=== PATIENT | male | born 1925 | race Caucasian/White ===

== ENCOUNTER 2016-09-23 12:34 | Inpatient (IN) | payer MEDICARE, BC ==
--- NOTE | ~2016-09-23 | CO ---
Unit #: [id number] #: [id number] Patient: EULALIA ARIAS SR [id number] [address] [place], [place] [address] [id number] I MR#: [id number] NAME: EULALIA ARIAS SR ROOM: 313 Age: 89 Sex: M Admission Date: 09/23/2016 : 1925 Attending Physician: Di Rayo M.D. Primary Care Physician: Eulalia Becerra II., M.D. CONSULTATION REPORT REASON FOR CONSULTATION Congestive heart failure. HISTORY OF PRESENT ILLNESS This is an 89-year-old white male, who is followed by Dr. Shirley. He has a history of coronary artery disease where he underwent coronary artery bypass graft in 2001. He is known to have chronic systolic heart failure, hypertension, hyperlipidemia, and sick sinus syndrome with permanent pacemaker. The patient is admitted with a complaint of shortness of breath, cough, and weakness. He reports approximate 30-pound weight loss over a short period of time. He noted black stools and some difficulty with swallowing. No abdominal discomfort. His shortness of breath mostly occurs on exertion. Denies paroxysmal nocturnal dyspnea or orthopnea. No chest pain. No fever or chills. He went to his primary care physician's office where he was found to be anemic with hemoglobin of 6.8, and was sent to the emergency room for evaluation where he received a unit of packed red blood cells. His hemoglobin has improved to 9.7. He was also noted to have elevated troponin that is peaked to 0.34. He was treated in the emergency room with IV furosemide because of elevated BNP of 1472. Chest x-ray showed no significant heart failure. PAST MEDICAL HISTORY 1. A 2D echocardiogram on 02/21/2015 showed an ejection fraction of 15% to 20% with mild mitral stenosis, moderate mitral regurgitation, moderate tricuspid regurgitation, and moderate aortic stenosis with a severity could be underestimated secondary to the severe left ventricular systolic dysfunction. Right ventricular systolic pressure greater than 60 mmHg. 2. Coronary artery bypass graft in 2001, no details available. 3. Sick sinus syndrome status post permanent pacemaker. 4. Chronic systolic heart failure. 5. Hypertension. 6. Hyperlipidemia. 7. Diabetes mellitus, type 2. 8. Parkinson disease. 9. Chronic kidney disease, stage 4. 10. Former smoker. PAST SURGICAL HISTORY 1. Right hip replacement. 2. Cataract extraction. 3. Hemorrhoidectomy. Unit #: [id number] #: [id number] Patient: EULALIA ARIAS SR 4. Coronary artery bypass graft. 5. Permanent pacemaker. SOCIAL HISTORY The patient lives with his grandson, who assists him with his care. He ambulates with a walker. Quit smoking over 30 years ago. Denies illicit drug and alcohol use. FAMILY HISTORY Noncontributory given his advanced age. ALLERGIES Nifedipine. HOME MEDICATIONS 1. Allopurinol 100 mg daily. 2. Symbicort 160/4.5 mcg two puffs b.i.d. 3. Calcitriol 0.25 mcg daily. 4. Calcium carbonate 1500 mg t.i.d. 5. Carvedilol 12.5 mg b.i.d. 6. Ferrous sulfate 325 mg b.i.d. 7. Furosemide 40 mg daily. 8. Glucosamine/chondroitin 1 tablet daily. 9. NovoLog 70/30 per sliding scale. 10. Multivitamin 1 tablet daily. 11. Simvastatin 80 mg nightly. 12. Terazosin 2 mg nightly. 13. Ambien 12.5 mg nightly. REVIEW OF SYSTEMS CONSTITUTIONAL: Negative for fever or chills. Has a 30-pound weight loss that is recent. No weight gain. Positive for weakness. HEENT: No headache. No vision changes, but reports difficulty with swallowing. Has occasional dizziness. CARDIOVASCULAR: Has no symptoms of angina. Denies palpitations. No paroxysmal nocturnal dyspnea or orthopnea. No syncope or near syncope. RESPIRATORY: Reports dyspnea on exertion. No cough or hemoptysis. GASTROINTESTINAL: Denies abdominal pain, but reports melenic stools. No nausea or vomiting. EXTREMITIES: Negative for lower extremity edema. PHYSICAL EXAMINATION VITAL SIGNS: Blood pressure 131/74, heart rate 59, temperature 97.8, and BMI 17. GENERAL: This is a thin frail 89-year-old elderly white male, who is in no acute respiratory distress. NEUROLOGIC: He is awake, alert, oriented. There are no focal weaknesses,. NECK: Trachea is midline. No thyromegaly or lymphadenopathy. No jugular venous distention. HEART: S1 and S2. Heart sounds are normal with a grade 2/6 systolic murmur heard best at the apex and the left sternal border that radiates to the carotid and the axilla. No rubs or clicks. Regular rate and rhythm. LUNGS: Diminished breath sounds without rales, rhonchi, or wheezes. ABDOMEN: Soft and nontender with bowel sounds present. EXTREMITIES: Without leg edema. SKIN: Warm and dry. Unit #: [id number] #: [id number] Patient: EULALIA ARIAS SR DIAGNOSIS STUDIES LABORATORY STUDIES: Hemoglobin 9.7, hematocrit 29.4, platelet count 227, and white count 5.5. Sodium 136, potassium 4.7, BUN 67, creatinine 2.3, and glucose 166. Troponin less than 0.05 to 0.22 to 0.34. BNP 1472. IMAGING STUDIES: Chest x-ray shows questionable pneumonia. CARDIOVASCULAR STUDIES: EKG shows ventricular paced rhythm with a rate of 79 beats per minute. IMPRESSION 1. Symptomatic anemia. 2. Severe anemia, questionable gastrointestinal blood loss. 3. Weight loss, questionable etiology. 4. Dysphagia. 5. Chronic systolic heart failure with reduced ejection fraction of 15% to 20%. 6. History of coronary artery bypass graft in 2001. 7. Valvular heart disease with moderate mitral regurgitation, moderate aortic stenosis, and moderate tricuspid regurgitation. 8. Pulmonary hypertension. 9. Permanent pacemaker. 10. Chronic kidney disease, stage 4. PLAN 1. Cardiology was consulted for evaluation of congestive heart failure. The patient received IV Lasix in the emergency room and clinically is euvolemic on examination. We will change Lasix to oral. 2. Continue beta-leticia and statin. 3. No CARLOS ALBERTO inhibitor or ARBs secondary to chronic kidney disease, stage 4. 4. Trend troponin. 5. Troponin elevation may be secondary to anemia. 6. We will check echocardiogram to re-evaluate for valvular heart disease. 7. No further cardiac workup is planned at this time. Thank you for allowing us to assist in this patient's care. Dictated by... Flash Vazquez.P.R.N. for Carlton Juarez/evelin TD: 09/26/2016 02:20 JOB #: [id number] CC: Dev Springer M.D. CONSULTATION REPORT Page 1 of 1 X Dano Condon APRN CONSULTATION REPORT
--- NOTE | ~2016-09-23 | DS ---
Unit #: [id number] #: [id number] Patient: EULALIA ARIAS SR [id number] [address] [place], [place] [address] [id number] I MR#: [id number] NAME: EULALIA ARIAS SR ROOM: 313 Age: 89 Sex: M Admission Date: 09/23/2016 : 1925 Discharge Date: 09/25/2016 Attending Physician: Di Rayo M.D. Primary Care Physician: Eulalia Becerra II., M.D. DISCHARGE SUMMARY REASON FOR ADMISSION Weakness and low hemoglobin. HISTORY OF PRESENT ILLNESS/HOSPITAL COURSE The patient is an 89-year-old male with underlying history of heart failure, valvular heart disease, chronic kidney disease, hypertension, hyperlipidemia, diabetes, parkinsonism, sick sinus syndrome, who presented secondary to profound weakness. While he was evaluated at his primary care physician's office, he was noted to have a hemoglobin of 6.8. During hospital admission, he was typed and crossed and transfused 2 units. Consultation was placed with [facility] for evaluation. Family after discussion with them stated they did not wish for endoscopic evaluation. Therefore, the patient was appropriately monitor and at one point time, his hemoglobin did peak at 10.4, anticoagulation was placed on hold while he was here today and after several serial H and H, his hemoglobin has remained stable. At time of discharge, it is currently 8.6. The patient is otherwise asymptomatic. He feels well secondary to advanced age and associated comorbid conditions. The patient seems stable on conservative medical management in regard to his cardiac conditions. He did undergo 2D echocardiogram at this hospital stay which did show an ejection fraction of 25% to 30%, severe global hypokinesis of the left ventricle, the aortic valve did show severe aortic stenosis, moderate mitral regurgitation was also noted as well as moderate tricuspid regurgitation. From a cardiac standpoint, the patient is stable with conservative management only. From hematological standpoint, the patient has received 2 units and his hemoglobin does seem stable as well. No further anticoagulation will be given at time of discharge. FINAL DISCHARGE DIAGNOSES 1. Acute on chronic anemia, symptomatic. 2. Acute on chronic systolic heart failure, ejection fraction 25% to 30%. 3. Severe aortic stenosis. 4. Moderate mitral regurgitation and moderate tricuspid regurgitation. 5. Coronary artery disease. 6. Prior coronary artery bypass grafting in 2001. 7. Pulmonary hypertension. 8. Prior history of pacemaker placement. 9. Sick sinus syndrome. 10. Hypertension. 11. Diabetes. 12. Hyperlipidemia. Unit #: [id number] #: [id number] Patient: EULALIA ARIAS SR 13. Parkinsonism. 14. Chronic kidney disease. 15. Chronic deconditioning/immobility syndrome. DIAGNOSTIC STUDIES LABORATORY RESULTS: Discharge laboratory studies show hemoglobin of 8.6, creatinine of 2.0, both likely representing the patient's baseline. DISCHARGE MEDICATIONS Symbicort 160/4.5 two puffs b.i.d., Ambien 12.5 mg p.o. q.h.s. p.r.n. Home medication; Coreg 12.5 mg p.o. b.i.d., Lasix 40 mg p.o. daily, simvastatin 80 mg p.o. q.h.s., Hytrin 2 mg p.o. q.h.s., ferrous sulfate 325 mg p.o. b.i.d., allopurinol 100 mg p.o. daily, glucosamine daily, multivitamin daily, calcium carbonate/Tums 1500 mg p.o. t.i.d., Imdur 30 mg p.o. daily, calcitriol 0.25 mcg p.o. daily, Protonix 40 mg p.o. daily. The patient taking Novolin mix 70/30 according to sliding scale, dosage unclear at home. We will verify and resume at time of discharge per previous instructions. DISCHARGE CONDITION Stable. DISCHARGE DISPOSITION Home with Home Health Services. Dictated by... Carlton Sutherland/evelin TD: 09/27/2016 01:23 JOB #: [id number] DISCHARGE SUMMARY Page 1 of 1 X Di Rayo MD X DISCHARGE SUMMARY
--- NOTE | ~2016-09-23 | EKG ---
PATIENT: EULALIA ARIAS UNIT #: [id number] Ventricular Rate: 60 BPM Atrial Rate: 60 BPM P-R Interval: 132 ms QRS Duration: 170 ms Q-T Interval: 524 ms QTC Calculation(Bezet): 524 ms P [place]: 43 degrees Calculated R [place]: -54 degrees Calculated T [place]: 119 degrees Diagnosis Line: AV sequential or dual chamber electronic pacemaker Diagnosis Line: When compared with ECG of 23-SEP-2016 13:00, Diagnosis Line: Premature ventricular complexes are no longer Diagnosis Line: Present Diagnosis Line: Vent. rate has decreased BY 19 BPM Diagnosis Line: Confirmed by REYNALDO BRUNSON MD ([id number]) on Diagnosis Line: 09/25/2016 10:11:05 AM INTERPRETING OBED HAY
--- NOTE | ~2016-09-23 | EKG ---
PATIENT: EULALIA ARIAS UNIT #: [id number] Ventricular Rate: 79 BPM Atrial Rate: 79 BPM P-R Interval: 138 ms QRS Duration: 204 ms Q-T Interval: 498 ms QTC Calculation(Bezet): 571 ms P Elizabeth: 86 degrees Calculated R Elizabeth: -75 degrees Calculated T Elizabeth: 118 degrees Diagnosis Line: Atrial-sensed ventricular-paced rhythm with Diagnosis Line: occasional Premature ventricular complexes Diagnosis Line: Abnormal ECG Diagnosis Line: When compared with ECG of 26-MAY-2015 13:42, Diagnosis Line: Premature ventricular complexes are now Present Diagnosis Line: Vent. rate has increased BY 6 BPM Diagnosis Line: Confirmed by ARLETTE AGUILAR MD ([id number]) on Diagnosis Line: 09/23/2016 5:28:25 PM INTERPRETING MD: LAUREN PENNINGTON
--- NOTE | ~2016-09-23 | HP ---
Unit #: [id number] #: [id number] Patient: EULALIA ARIAS SR [id number] [address] [place], [place] [address] [id number] I MR#: [id number] NAME: EULALIA ARIAS SR ROOM: 313 Age: 89 Sex: M Admission Date: 09/23/2016 : 1925 Attending Physician: Anita Alvarado M.D. Primary Care Physician: Eulalia Becerra II., M.D. HISTORY AND PHYSICAL CHIEF COMPLAINT Weakness, low hemoglobin. HISTORY OF PRESENT ILLNESS The patient is an 89-year-old male with past medical history of CHF, chronic kidney disease, hypertension, hyperlipidemia, diabetes, coronary artery disease, GERD, BPH, sick sinus syndrome, Parkinson disease, who presented to the emergency department from his primary care physician's office for evaluation of the above. The patient states that he has had increasing generalized weakness for the past week. He has also noticed shortness of breath. He reports an occasional cough. He denies any chest pain. He has been feeling intermittently lightheaded. He states that he fell within the past couple of days. He denies any loss of consciousness or hitting his head. He has had intermittent blood in the stool. He saw his primary care physician today and was noted to have a hemoglobin of 6.8. He was sent to the emergency department for further evaluation. In the emergency department initial pulse and blood pressure were 75 and 120/67 respectively. Hemoglobin 7.2. He was noted to be heme positive. He was given 40 mg of Protonix as well as 40 mg of Lasix. Two units of packed red blood cells have been ordered. Chest x-ray does show increased interstitial markings right greater than left. BNP is 1472. He is being admitted to [facility] for evaluation and further treatment. PAST MEDICAL HISTORY 1. Admission to [facility] February 20-2014 for [id number] systolic congestive heart failure. 2. Congestive heart failure, per the discharge summary from February of 2015 the patient has an ejection fraction of 15% to 20%. He had a 2D echocardiogram on February 21 that showed septal akinesis, moderate mitral regurgitation, moderate tricuspid regurgitation, moderate valvular aortic stenosis, elevated right ventricular systolic pressure of greater than 60 mmHg. 3. Pulmonary hypertension. 4. Chronic kidney disease, stage 4 with a baseline creatinine of 2.1. 5. Hypertension. 6. Hyperlipidemia. 7. Diabetes. 8. Coronary artery disease, status post coronary artery bypass graft. 9. Sick sinus syndrome, status post pacemaker placement. Unit #: [id number] #: [id number] Patient: EULALIA ARIAS SR 10. Parkinson disease, followed by Dr. Becerra. 11. GERD. PAST SURGICAL HISTORY 1. Pacemaker placement. 2. Coronary artery bypass graft. 3. Skin cancer excision. 4. Hemorrhoidectomy. 5. Right hip surgery. SOCIAL HISTORY The patient lives with his grandson. He walks with a walker. There is no tobacco or alcohol use. CODE STATUS His code status is a Do Not Resuscitate. FAMILY HISTORY Family history is noncontributory secondary to age. ALLERGIES Nifedipine. HOME MEDICATIONS 1. Zyloprim 100 mg daily. 2. Symbicort 160/4.5 two puffs inhaled b.i.d. 3. Calcitriol 0.25 mcg daily. 4. Calcium carbonate 1500 mg t.i.d. 5. Coreg 12.5 mg b.i.d. 6. Iron 325 mg b.i.d. 7. Lasix 40 mg daily. 8. Glucosamine and chondroitin daily. 9. NovoLog 70/30 sliding scale. 10. Multivitamin daily. 11. Simvastatin 80 mg daily. 12. Hytrin 2 mg q.h.s. 13. Ambien 12.5 mg q.h.s. p.r.n. REVIEW OF SYSTEMS A complete review of systems is negative except as indicated in the HPI. The patient states that he has been maintaining his weight. DIAGNOSTIC STUDIES CARDIOVASCULAR: EKG shows paced rhythm with occasional PVCs and a rate of 79 beats per minute. IMAGING: Chest x-ray shows interstitial change right greater than left. LABORATORY: Troponin is less than 0.05. INR is 1.2. Comprehensive metabolic panel notable for a sodium of 133, CO2 is 19, glucose 250, BUN and creatinine 68 and 2.4 respectively, calcium is 8.2 but corrects when albumin of 2.9 is accounted for, alkaline phosphatase 95. Complete blood count notable for hemoglobin and hematocrit of 7.2 and 22.8 respectively. BNP is 1472. Urinalysis notable for trace leukocyte esterase. PHYSICAL EXAMINATION VITAL SIGNS: Temperature is 98.2. Pulse 75. Respirations 15. Blood pressure 120/67. Oxygen saturation is 98% on room air. Unit #: [id number] #: [id number] Patient: EULALIA ARIAS SR GENERAL: The patient is a very pleasant male who is awake and alert, in no acute distress. HEENT: The head is atraumatic. Mucous membranes are moist. NECK: Neck is supple. Trachea is midline. CARDIOVASCULAR: Regular rate and rhythm. He does have a 3/6 systolic ejection murmur. RESPIRATORY: Lungs demonstrate decreased breath sounds at the bases. Breathing is not labored. ABDOMEN: Abdomen is soft, nontender, with bowel sounds present in all four quadrants. ANO-RECTAL: Rectal exam was heme positive per ER documentation. EXTREMITIES: Nontender with no pedal edema. NEUROLOGIC: The patient is awake and alert. He is oriented x3. He follows commands. He does have a tremor. PSYCHIATRIC: Mood and affect are normal. The patient is cooperative. SKIN: Skin of examined areas is warm and dry. ASSESSMENT The patient is an 89-year-old male with: 1. Symptomatic anemia. The patient's hemoglobin was 10.9 on May 26, 2015. It is 7.2 today. 2. Mzydipjhsdpo4hnhj bleed. The patient received 40 mg of Protonix in the emergency department. Two units of packed red blood cells have been ordered. 3. Congestive heart failure. The patient had an ejection fraction of 15% to 20% noted in February of 2015. He received 40 mg of Lasix in the emergency department. 4. Chronic kidney disease, stag 4 with a baseline creatinine of 2.1. Creatinine is 2.4 today. 5. Hypertension. 6. Hyperlipidemia. 7. Diabetes. 8. Coronary artery disease, status post coronary artery bypass grafting. 9. Gastroesophageal reflux disease. 10. Benign prostatic hypertrophy. 11. Sick sinus syndrome, status post pacemaker placement. 12. Parkinson disease followed by Dr. Becerra. PLAN 1. Admit to intermediate level. 2. Clear liquid diet for possible endoscopy. 3. Hemoglobin and hematocrit one hour after transfusion and q.6 h. Will plan to transfuse for hemoglobin less than 8 due to a history of coronary artery disease. 4. Iron studies, B12 and folate. 5. Protonix 40 mg IV now for a total of 80 mg followed by Protonix drip at 8 mg per hour. 6. Consult Dr. Akers regarding GI bleed. 7. Strict Is and Os. 8. Daily weights. 9. Lasix 40 mg IV daily. 10. Serial cardiac enzymes. 11. Consult Dr. Koehler regarding CHF. 12. Low dose sliding scale insulin with Accu-Cheks. 13. SCDs. 14. Repeat labs in the morning. 15. Additional workup and consultants based on above. 16. Regarding code status, the patient is a Do Not Resuscitate. Unit #: [id number] #: [id number] Patient: HUGO ,EULALIA Marilou Dictated by Carlton Merritt/claude TD: 09/23/2016 20:37 JOB #: [id number] HISTORY AND PHYSICAL Page 1 of 1 X Anita Alvarado MD HISTORY AND PHYSICAL
--- NOTE | ~2016-09-23 | CR72 ---
[facility] A Service of [facility] RADIOLOGY TEXT RESULTS PATIENT: EULALIA ARIAS SR LOCATION: [facility] : [birth year] UNIT #: [id number] AGE: [address]: Anita Alvarado MD SEX: M ORDER DR: [id number] [facility] [address] [facility]. [place], [place] [address] [id number] MR#: [id number] Acc #: [id number] NAME: EULALIA ARIAS SR : 1925 SEX: M STUDY DATE/TIME: 09/23/2016 13:06 UNIT: [facility] ROOM: STUDY DESCRIPTION: CR Chest Single View Portable Attending Physician: Star Myles M.D. Ordering Physician: Star Myles M.D. Primary Care Physician: Eulalia Becerra II., M.D. MEDICAL IMAGING REPORT This report is preliminary unless electronic signature is present EXAM Chest portable, 09/23/2016 13:06 hours HISTORY 89-year-old man with weakness and low hemoglobin today. History of diabetes, shortness of air and CHF. COMPARISON CT chest 05/29/2015 and chest x-ray 05/29/2015 FINDINGS Single portable upright view demonstrates CABG change with dual lead pacer unchanged. The heart size is normal. Aortic and hilar contours are normal. The lungs demonstrate increase in interstitial markings diffusely right greater than left lung appearing increased from 2015. Prior CT did demonstrate what appeared to be some chronic interstitial change, right greater than left lung. This could represent progression of that chronic interstitial process versus acute superimposed interstitial edema. No effusion seen. IMPRESSION 1. CABG change with normal heart size and stable dual lead pacer device. 2. There is asymmetric right greater than left interstitial change in the lungs appearing increased from May 2015. The prior CT suggested chronic interstitial change, right greater than left lung. The current findings could represent progression of the underlying interstitial process or acute superimposed interstitial edema or interstitial pneumonitis. Dictated by... Rosa Elena Sanchez M.D. THIS IS AN ELECTRONICALLY VERIFIED REPORT [facility] A Service of [facility] RADIOLOGY TEXT RESULTS PATIENT: EULALIA ARIAS SR LOCATION: [facility] [id number] : [birth year] UNIT #: [id number] AGE: [address]: Anita Alvarado MD SEX: M ORDER DR: Rosa Elena Sanchez M.D. at 09/23/2016 5:18 PM Vito TD: 09/23/2016 16:14 JOB #: [id number] MEDICAL IMAGING REPORT Page 1 of 1 COPY
--- NOTE | ~2016-09-23 | CO ---
Unit #: [id number] #: [id number] Patient: EULALIA ARIAS SR [id number] [address] [place], [place] [address] [id number] MR#: [id number] NAME: EULALIA ARIAS SR ROOM: 313 Age: 89 Sex: M Admission Date: 09/23/2016 : 1925 Attending Physician: Di Rayo M.D. Primary Care Physician: Eulalia Becerra II., M.D. Consultation Date: 09/24/2016 CONSULTATION REPORT HISTORY OF PRESENT ILLNESS Mr. Cat is a very frail 89-year-old gentleman, who was sent to the office because of complaints of progressive weakness and was noted to have a hemoglobin of 7.2. The patient was hemodynamically stable and there has been no gross blood loss, but he did have a heme-positive stool on examination. The patient has a long history of chronic anemia from chronic disease. He has underlying chronic kidney disease and has been followed by Hematology and treated with erythropoietin stimulating hormone and intermittent transfusions. He has had extensive endoscopic evaluation by Dr. Akers in the past, and at this time, speaking with the family, they do not want to pursue any further endoscopic evaluation. They just want to treat the patient symptomatically. PAST MEDICAL HISTORY Congestive heart failure, chronic kidney disease, hypertension, hyperlipidemia, diabetes, coronary artery disease, reflux, benign prostatic hypertrophy, sick sinus syndrome, Parkinson disease. He is extremely hard of hearing. His last ejection fraction from 2014 was noted to be 15% to 20%. He has multiple valvular abnormalities including the aortic stenosis. History of pulmonary hypertension. His chronic kidney disease is stage 4. He has had both EGD and colonoscopy. He was noted to have diverticulosis, a previous benign colonic polyp, and angiodysplastic lesions of the stomach. He has had a previous coronary artery bypass grafting, skin cancer excision on multiple occasions, pacemaker placement, hemorrhoidectomy, and previous hip surgery. He is a DNR patient with a living will. ALLERGIES He is allergic to nifedipine. HOME MEDICATIONS Include Zyloprim, Symbicort, calcitriol, calcium carbonate, Coreg, iron, Lasix, glucosamine and chondroitin sulfate, NovoLog, multivitamin, simvastatin, Hytrin, and Ambien. FAMILY HISTORY He is unaware of any chronic or inheritable diseases. SOCIAL HISTORY He lives with his grandson. He is able to walk with a walker. No tobacco or alcohol use. REVIEW OF SYSTEMS Denies hematemesis, hematochezia, or melena. Unit #: [id number] #: [id number] Patient: EULALIA ARIAS SR PHYSICAL EXAMINATION VITAL SIGNS: Temperature is 97.8, pulse 59, respirations 16, and blood pressure 131/74. GENERAL: He is awake, alert, very pleasant. He is hard of hearing, but he is oriented. HEENT: Unremarkable. CARDIAC: Regular rhythm. LUNGS: Clear. ABDOMEN: Soft. EXTREMITIES: No edema. NEUROLOGIC: Grossly intact. DIAGNOSTIC STUDIES LABORATORY RESULTS: BUN and creatinine are 67 and 2.3, which is baseline. Electrolytes are unremarkable. Albumin 2.9. Liver chemistries unremarkable. BNP 1472. Iron is normal. INR is 1.2. This morning, his white count is 5500 with normal differential, hemoglobin 9.7, and platelets 227,000. Urinalysis is negative for blood. IMAGING STUDIES: Chest x-ray; no acute findings. ASSESSMENT AND PLAN An 89-year-old gentleman with multiple medical problems and a long history of anemia of chronic disease, who is followed by Hematology and intermittently treated with erythropoietin stimulating hormone and given transfusions. The patient has had a history of angiodysplasia of the stomach in the past and diverticulosis of the colon. He has also had a benign polyp removed in the past. The patient and family do not want to pursue any further endoscopic evaluation. The patient feels better and his hemoglobin is 9.7 after transfusion. We will follow his hemoglobin and hematocrit for the next 24 hours, and if remains stable, he can probably go home. Dictated by... Carlton Laurent/evelin TD: 09/25/2016 16:25 JOB #: [id number] CONSULTATION REPORT Page 1 of 1 X Jay Centeno MD CONSULTATION REPORT
[~2016-09-23 12:34] MED LIST: AMARYL PO; AMBIEN PO; AMBIEN12.5 M1 PO; ARANESP300 MCG/0. SUBQ; ARANESP60 MCG/ML INJ; ASPIRIN PO; AVANDIA PO; BENADRYL25 M3 PO; CALCITRIOL0.25 MCG PO; CALCIUM CARBON600 M1 PO; COLACE PO; CORAL CALCIUM1000 MG PO; COREG PO; COREG12.5 MG PO; COREG3.125 MG PO; FERRO-TIME325 MG PO; FERROUS SULFATE PO; FLAGYL PO; GLUCOSAMINE500 M1 PO; HYDROCODON-ACE1 EAC7 PO; HYTRIN PO; HYTRIN2 MG PO; IRON325 ( 651 PO; ISORDIL PO; JANUVIA 100MG; LANOXIN PO; LASIX PO; LASIX80 MG PO; LISINOPRIL PO; MILK OF MAGNESIA PO; MULTI VITAMIN1 EACH PO; MULTI-VITAMIN1 TAB PO; NOVOLOG100 U/M2 SUBQ; NOVOLOG100 U/ML SUBQ; NOVOLOG7030; NOVOLOG7030 IJ; NOVOLOG7030 INJ; NOVOLOG7030 SUBQ; ONE DAILY ADUL1 EACH PO; PRILOSEC PO; PROSCAR5 MG PO; PROTONIX PO; RYTARY ER 23.71 EACH PO; SINEMET CR 51 TAB.SA PO; TYLENOL325 M1 PO; ZOCOR PO; ZOCOR80 MG PO; ZOLPIDEM TART12.5 M1 PO; ZYLOPRIM PO; ZYLOPRIM100 MG PO; [UNRECOGNIZED DRUG - OTHER] PO
[2016-09-23] MEDS ORDERED: SYMBICORT INH (13:27)
[2016-09-23] MEDS ORDERED: CALCITRIOL0.25 MCG PO (13:27)
[2016-09-23] MEDS ORDERED: ZYLOPRIM100 MG PO (13:27)
[2016-09-23] MEDS ORDERED: FERRO-TIME325 MG PO (13:28)
[2016-09-23] MEDS ORDERED: COREG12.5 M1 PO (13:28)
[2016-09-23] MEDS ORDERED: NATURAL CALCIU500 M1 PO (13:28)
[2016-09-23] MEDS ORDERED: LASIX PO (13:29)
[2016-09-23] MEDS ORDERED: GLUCOSAMINE &1 EAC1 PO (13:29)
[2016-09-23] MEDS ORDERED: NOVOLOG MI100 UNIT/1 (13:29)
[2016-09-23] MEDS ORDERED: HYTRIN2 MG PO (13:30)
[2016-09-23] MEDS ORDERED: AMBIEN12.5 MG PO (13:30)
[2016-09-23] MEDS ORDERED: SIMVASTATIN80 MG PO (13:30)
[2016-09-23] MEDS ORDERED: MULTIVITAMINS1 EAC3 PO (13:30)
[2016-09-23 13:40] LABS: POC - TROPONIN <0.05 ng/mL (<=0.05)
[2016-09-23 13:42] LABS: BASOPHIL% 0.4 % (0-2.5); EOSINOPHIL% 0.6 % (0.0-7.0); HEMATOCRIT 22.8 % (38.0-50.0); HEMOGLOBIN 7.2 gm/dL (13.0-16.0); LYMPHOCYTE# 0.3 X10e3 (1.0-3.5); LYMPHOCYTE% 4.3 % (17.0-45.0); MEAN CELL VOLUME 90.6 FL (83-96); MEAN CORPUSCULAR HEMOGLOBIN 28.8 PG (28-34); MEAN CORPUSCULAR HGB CONC 31.9 g/dL (30-36); MEAN PLATELET VOLUME 8.9 FL (6.5-11.5); MONOCYTE# 0.5 X10e3 (0-1.0); MONOCYTE% 8.1 % (3.0-12.0); NEUTROPHIL# 5.7 X10e3 (1.5-7.1); NEUTROPHIL% 86.6 % (40-75); PLATELET COUNT 244 X10e3 (140-420); RED BLOOD COUNT 2.51 X10e (3.90-5.60); RED CELL DISTRIBUTION WIDTH 18.7 % (11.0-15.5); WHITE BLOOD COUNT 6.6 X10e3 (4.0-10.5)
[2016-09-23 13:43] LABS: DIFF IND YES
[2016-09-23 13:51] LABS: INR 1.2; PARTIAL THROMBOPLASTIN TIME 30.8 SECONDS (23.5-31.3); PROTHROMBIN TIME (PATIENT) 12.5 SECONDS (10.0-11.7)
[2016-09-23 14:01] LABS: ALBUMIN SERUM 2.9 g/dL (3.5-5.0); BILIRUBIN, DIRECT 0.2 mg/dL (0.0-0.2); BILIRUBIN,INDIRECT 0.6 mg/dL (0.0-0.9); BILIRUBIN,TOTAL 0.8 mg/dL (0.2-2.0); BUN/CREATININE RATIO 28.33; CALCIUM SERUM 8.2 mg/dL (8.4-10.2); CREATININE SERUM 2.4 mg/dL (0.6-1.4); GLOM FILT RATE Estimated 23.1 mL/min (>60); POTASSIUM 5.1 mmol/L (3.5-5.1); PROTEIN TOTAL SERUM 6.9 g/dL (6.0-8.3)
[2016-09-23 14:11] LABS: ANISOCYTOSIS MOD; PLATELET ESTIMATE NORMAL (NORMAL); POIKILOCYTOSIS MOD
[2016-09-23 14:12] LABS: ELLIPTOCYTES PRESENT
[2016-09-23 14:20] LABS: URINE SOURCE CLEAN CATCH
[2016-09-23 14:28] LABS: URINE APPEARANCE CLEAR; URINE BILIRUBIN NEG (NEG); URINE BLOOD NEG (NEG); URINE COLOR YELLOW; URINE GLUCOSE NEG (NEG); URINE KETONE TRACE (NEG); URINE LEUKOCYTE ESTERASE TRACE (NEG); URINE NITRATE NEG (NEG); URINE PROTEIN NEG (NEG); URINE SPECIFIC GRAVITY 1.014 (1.003-1.035)
[2016-09-23 14:31] LABS: URBCS1 AUWI 0-2 /[HPF] (0-2); URINE BACTERIA AUWI NEG (NEGATIVE); URINE SQUAMOUS EPITHELIAL CELL NONE SEEN /[HPF]; UWBCS1 AUWI 0-2 (0-5)
[2016-09-23 14:34] LABS: CULTURE INDICATED? NO
[2016-09-23 14:59] LABS: POC - CKMB 3.7 ng/mL (0.0-7.9); POC - TROPONIN <0.05 ng/mL (<=0.05)
[2016-09-23 17:04] LABS: IRON SERUM 51 ug/dL (45-182); TOTAL IRON BINDING CAPACITY 247 ug/dL (252-460); TRANSFERRIN 177 mg/dL (180-329); TRANSFERRIN SATURATION 21 % (20-50)
[2016-09-23 17:23] LABS: FOLATE (FOLIC ACID) 16.1 ng/mL (>5.8)
[2016-09-23 22:25] LABS: %MB 5.1 % (0.0-4.0); MB 4.7 ng/ml
[2016-09-23 22:59] LABS: HEMOGLOBIN 10.1 gm/dL (13.0-16.0)
[2016-09-24 03:40] LABS: HEMATOCRIT 30.6 % (38.0-50.0); HEMOGLOBIN 9.9 gm/dL (13.0-16.0); MEAN CELL VOLUME 89.1 FL (83-96); MEAN CORPUSCULAR HEMOGLOBIN 28.8 PG (28-34); MEAN CORPUSCULAR HGB CONC 32.3 g/dL (30-36); MEAN PLATELET VOLUME 8.9 FL (6.5-11.5); RED BLOOD COUNT 3.44 X10e (3.90-5.60); RED CELL DISTRIBUTION WIDTH 16.8 % (11.0-15.5); WHITE BLOOD COUNT 5.5 X10e3 (4.0-10.5)
[2016-09-24 04:08] LABS: ALBUMIN SERUM 2.9 g/dL (3.5-5.0); BUN/CREATININE RATIO 29.13; CALCIUM SERUM 8.2 mg/dL (8.4-10.2); CREATININE SERUM 2.3 mg/dL (0.6-1.4); GLOM FILT RATE Estimated 24.3 mL/min (>60); POTASSIUM 4.7 mmol/L (3.5-5.1)
[2016-09-24 04:37] LABS: %MB 6.3 % (0.0-4.0)
[2016-09-24 05:13] LABS: HEMATOCRIT 29.4 % (38.0-50.0); HEMOGLOBIN 9.7 gm/dL (13.0-16.0)
[2016-09-24 08:47] LABS: HEMATOCRIT 31.9 % (38.0-50.0); HEMOGLOBIN 10.4 gm/dL (13.0-16.0)
[2016-09-24 11:07] LABS: HEMATOCRIT 30.6 % (38.0-50.0); HEMOGLOBIN 9.9 gm/dL (13.0-16.0)
[2016-09-24 16:15] LABS: HEMATOCRIT 30.4 % (38.0-50.0); HEMOGLOBIN 9.9 gm/dL (13.0-16.0)
[2016-09-24 20:28] LABS: HEMATOCRIT 29.9 % (38.0-50.0); HEMOGLOBIN 9.6 gm/dL (13.0-16.0)
[2016-09-24 22:57] LABS: HEMATOCRIT 26.9 % (38.0-50.0); HEMOGLOBIN 8.6 gm/dL (13.0-16.0)
[2016-09-25 05:13] LABS: HEMATOCRIT 26.2 % (38.0-50.0); HEMOGLOBIN 8.6 gm/dL (13.0-16.0); MEAN CELL VOLUME 88.7 FL (83-96); MEAN CORPUSCULAR HEMOGLOBIN 29.3 PG (28-34); MEAN PLATELET VOLUME 8.7 FL (6.5-11.5); RED BLOOD COUNT 2.95 X10e (3.90-5.60); WHITE BLOOD COUNT 6.5 X10e3 (4.0-10.5)
[2016-09-25 05:51] LABS: BUN/CREATININE RATIO 32.5; GLOM FILT RATE Estimated 28.7 mL/min (>60); POTASSIUM 4.3 mmol/L (3.5-5.1)
[2016-09-25] MEDS ORDERED: IMDUR-ER30 M1 PO (12:24)
[2016-09-25] MEDS ORDERED: LIPITOR40 MG PO (12:25)
[2016-09-25] MEDS ORDERED: PROTONIX PO (12:25)
[2016-12-05] MEDS ORDERED: PATIENT'S PHARMACY (15:04)
[2016-12-05] MEDS ORDERED: LASIX80 MG PO (15:04)
[2016-12-05] MEDS ORDERED: CALCITRIOL0.25 MCG PO (15:05)
[2016-12-05] MEDS ORDERED: DIPHENYDRAMINE25 MG PO (15:05)
[2016-12-05] MEDS ORDERED: PANTOPRAZOLE SO40 MG PO (15:05)
[2016-12-05] MEDS ORDERED: IRON325 MG PO (15:05)
[2016-12-05] MEDS ORDERED: CARBIDOPA-LEVO1 EAC2 PO (15:05)
[2016-12-05] MEDS ORDERED: GLUCOSAMINE &1 EAC1 PO (15:06)
[2016-12-05] MEDS ORDERED: ZYLOPRIM100 MG PO (15:06)
[2016-12-05] MEDS ORDERED: ZOCOR PO (15:06)
[2016-12-05] MEDS ORDERED: COREG3.125 M1 PO (15:06)
[2016-12-05] MEDS ORDERED: IMDUR PO (15:06)
[2016-12-05] MEDS ORDERED: HYTRIN PO (15:07)
[2016-12-05] MEDS ORDERED: NOVOLOG MI100 UNIT/1 SUBQ (15:07)
[2016-12-05] MEDS ORDERED: AMBIEN12.5 M1 PO (15:07)
[2016-12-05] MEDS ORDERED: MULTIVITAMINS1 EAC3 PO (15:07)
== END 2016-09-25 14:38 | disposition home health service (06) | DRG 811 ==
LOC: CED 12:34 → CEDOF 17:07 → C3A PCU 18:55 → CEDOF 18:55 → C3A PCU 18:55
PROVIDERS: Emergency Medicine; Family Medicine; Nurse Practitioner; Obstetrics & Gynecology
PROC: 30233N1 Transfusion of Nonautologous Red Blood Cells into Peripheral Vein, Percutaneous Approach (ICD-10-PCS; principal; 2016-09-23)
PROC: B24BZZZ Ultrasonography of Heart with Aorta (ICD-10-PCS; 2016-09-24)
DX: D64.9 Anemia, unspecified (principal); I50.23 Acute on chronic systolic (congestive) heart failure; N18.4 Chronic kidney disease, stage 4 (severe); E11.22 Type 2 diabetes mellitus with diabetic chronic kidney disease; I27.2 Other secondary pulmonary hypertension; G20 Parkinson's disease; I13.0 Hypertensive heart and chronic kidney disease with heart failure and stage 1 through stage 4 chronic kidney disease, or unspecified chronic kidney disease; K92.2 Gastrointestinal hemorrhage, unspecified; Z68.1 Body mass index [BMI] 19.9 or less, adult; Z87.891 Personal history of nicotine dependence; Z79.4 Long term (current) use of insulin; I08.3 Combined rheumatic disorders of mitral, aortic and tricuspid valves; I25.10 Atherosclerotic heart disease of native coronary artery without angina pectoris; Z95.1 Presence of aortocoronary bypass graft; Z95.0 Presence of cardiac pacemaker; E78.5 Hyperlipidemia, unspecified; M62.3 Immobility syndrome (paraplegic); K21.9 Gastro-esophageal reflux disease without esophagitis; N40.0 Benign prostatic hyperplasia without lower urinary tract symptoms; Z66 Do not resuscitate; Z88.8 Allergy status to other drugs, medicaments and biological substances; R13.10 Dysphagia, unspecified; R63.4 Abnormal weight loss
CPT/HCPCS: 36415; 71010; 80048; 80053; 80061; 80076; 81003; 82550; 82553; 82607; 82728; 82746; 82947; 83540; 83550; 83880; 84484; 85014; 85018; 85025; 85027; 85610; 85730; 86850; 86900; 86901; 86923; 92526; 92610; 93005; 93306; 96374; 99285; C9113; G8996-GN; G8997-GN; J1815; J1940; P9016